=== PATIENT | female | born 1985 | race Caucasian/White ===

== ENCOUNTER 2016-09-22 19:22 | Emergency (ER) | payer SELFPAY | END 2016-09-22 20:12 | disposition home or self-care (01) | LOC: ER 19:22 | PROC: 3E0234Z Introduction of Serum, Toxoid and Vaccine into Muscle, Percutaneous Approach (ICD-10-PCS; principal; 2016-09-22) | DX: S61.211A Laceration without foreign body of left index finger without damage to nail, initial encounter (principal); W26.8XXA Contact with other sharp object(s), not elsewhere classified, initial encounter; Z23 Encounter for immunization | CPT/HCPCS: 12001; 90471; 90715; 99070; 99282-25 ==

== ENCOUNTER 2016-09-27 13:00 | Emergency (ER) | payer OTHER ==
[2016-09-27 14:00] LABS: BASO # 0.1 10_X3_uL (0.0-0.1); BASO % 0.6 % (0.1-1.2); EOS # 0.4 10_X3_uL (0.0-0.4); EOS % 4.3 % (0.7-5.8); GRAN # 4.7 10_X3_uL (1.6-6.1); GRAN % 55.1 % (34.0-71.1); HEMATOCRIT 39.4 % (34-45); LYMPH # 2.4 10_X3_uL (1.2-3.7); LYMPH % 27.7 % (19.3-51.7); MEAN CORPUSCULAR HEMOGLOBIN 32.3 pg (27.0-33.0); MEAN CORPUSCULAR VOLUME 97.8 fL (79-95); MEAN PLATELET VOLUME 9.5 fl (7.5-11.5); MONO # 1.1 10_X3_uL (0.2-0.9); MONO % 12.3 % (4.7-12.5); PLATELET COUNT 373 x10_3/uL (182-369); RED BLOOD COUNT 4.03 x10_6/uL (3.9-5.2); RED CELL DISTRIBUTION WIDTH 12.5 % (11.7-14.4); WHITE BLOOD COUNT 8.6 x10_3/uL (4.0-10.0)
[2016-09-27 14:13] LABS: BLOOD UREA NITROGEN 8 mg/dL (7-18); CARBON DIOXIDE 26 mmol/L (21-32); CREATININE 0.5 mg/dL (0.6-1.3); GLUCOSE,RANDOM 101 mg/dL (70-99); POTASSIUM 4.1 mmol/L (3.5-5.1); SODIUM 141 mmol/L (136-145)
== END 2016-09-27 15:24 | disposition home or self-care (01) ==
LOC: ER 13:00
PROVIDERS: Emergency Medicine
DX: M79.89 Other specified soft tissue disorders (principal); M79.601 Pain in right arm; Z88.2 Allergy status to sulfonamides
CPT/HCPCS: 36415; 73200; 80048; 85025; 99283-25; 99284